=== PATIENT | female | born 1990 | race American Indian/Alaskan Native ===

== ENCOUNTER 2018-06-19 23:02 | Emergency (ER) | payer SELFPAY ==
[2018-06-20 00:48] VITALS: BP 133/98
[2018-06-20] MEDS ORDERED: NACL 0.9% 1000 ML 1,000 ML IV ONE (00:50)
[2018-06-20 01:24] LABS: Basophils # (Auto) 0.1 K/mm3 (0.0-0.1); Basophils % (Auto) 0.9 % (0.0-1.8); Eosinophils # (Auto) 0.1 K/mm3 (0.0-0.4); Eosinophils % (Auto) 1.5 % (0.0-4.3); Hematocrit 38.1 % (30.3-42.9); Hemoglobin 12.8 gm/dl (10.1-14.3); Lymphocytes # (Auto) 1.8 K/mm3 (1.2-5.4); Lymphocytes % (Auto) 23.9 % (13.4-35.0); Mean Corpuscular HGB Conc 34 % (30-34); Mean Corpuscular Hemoglobin 33 pg (28-32); Mean Corpuscular Volume 98 fl (79-97); Monocytes # (Auto) 0.5 K/mm3 (0.0-0.8); Monocytes % (Auto) 6.2 % (0.0-7.3); Platelet Count 275 K/mm3 (140-440); Red Blood Count 3.89 M/mm3 (3.65-5.03)
[2018-06-20 01:41] LABS: Alanine Aminotransferase 11 units/L (7-56); Albumin 4.8 g/dL (3.9-5); BUN/Creatinine Ratio 14; Blood Urea Nitrogen 7 mg/dL (7-17); Calcium 9.7 mg/dL (8.4-10.2); Hemolysis Index 19; Lipase 51 units/L (13-60)
== END 2018-06-20 02:40 | disposition left against medical advice (07) ==
LOC: ED 23:02
DX: R11.0 Nausea (principal); R10.9 Unspecified abdominal pain; Z53.21 Procedure and treatment not carried out due to patient leaving prior to being seen by health care provider
CPT/HCPCS: 36415; 80053; 83690; 84703; 85025

== ENCOUNTER 2020-10-14 13:25 | Emergency (ER) | payer SELFPAY ==
--- NOTE | 2020-10-14 13:57 | Event Note ---
ED Screening Note ED Screening Note: took at home test was positive 3 weeks ago went to [place] due to back pain states she was having intercourse last night and began having vaginal spotting began having lower abd cramping LNMP: 08/16/2020 has not seen [facility] no fever no diarrhea no vomiting no dysuria PMHx none allergy: iodine /P:1/A:1 This initial assessment/diagnostic orders/clinical plan/treatment(s) is/are subject to change based on patients health status, clinical progression and re- assessment by fellow clinical providers in the ED. Further treatment and workup at subsequent clinical providers discretion. Patient/guardian urged not to elope from the ED as their condition may be serious if not clinically assessed and managed. Initial orders include: labs, US, UA
[2020-10-14 14:56] LABS: Hematocrit 37.6 % (30.3-42.9); Hemoglobin 12.9 gm/dl (10.1-14.3); Mean Corpuscular HGB Conc 34 % (30-34); Mean Corpuscular Volume 99 fl (79-97); Platelet Count 333 K/mm3 (140-440); Red Blood Count 3.81 M/mm3 (3.65-5.03); Red Cell Distribution Width 12.9 % (13.2-15.2)
[2020-10-14 15:14] LABS: Blood Urea Nitrogen 4 mg/dL (7-17); Calcium 9.9 mg/dL (8.4-10.2); Hemolysis Index 4
[2020-10-14 15:16] LABS: BUN/Creatinine Ratio 10
--- NOTE | 2020-10-14 15:23 | Ultrasound Report ---
ULTRASOUND OBSTETRIC REASON FOR EXAM: , cramping, spotting TECHNIQUE: Transabdominal and transvaginal ultrasound was performed to evaluate a first trimester pre gnancy. COMPARISON: None available. FINDINGS: FINDINGS: The pole, yolk sac, and gestational sac are normal in appearance. [place]-rump length: 0.65 cm. This corresponds with a gestational age of 5 weeks 3 days. heart rate: No FHT detected. Perigestational hemorrhage: No evidence of perigestational hemorrhage on the provided images. MATERNAL FINDINGS: The uterus measures 8.3 x 5.0 x 6.8 cm. No focal myometrial mass. The right ovary measures 3.3 x 2 x 2 cm and demonstrates a normal sonographic appearance. The left ovary measures 2.7 x 0.7 x 2 cm and demonstrates a normal sonographic appearance. Cul-de-sac: No free fluid IMPRESSION: Intrauterine of uncertain viability. [place]-rump length corresponds to a gestational age of 5 weeks 3 days, though no heart tones are detected at this time. In a hemodynamically stable pa tient, recommend follow-up with pelvic ultrasound in 7-10 days. Signer Name: Michael Pereyra MD Signed: 10/14/2020 3:18 PM Workstation Name: [id number]
--- NOTE | 2020-10-14 15:23 | Ultrasound Report ---
ULTRASOUND OBSTETRIC REASON FOR EXAM: , cramping, spotting TECHNIQUE: Transabdominal and transvaginal ultrasound was performed to evaluate a first trimester pre gnancy. COMPARISON: None available. FINDINGS: FINDINGS: The pole, yolk sac, and gestational sac are normal in appearance. [place]-rump length: 0.65 cm. This corresponds with a gestational age of 5 weeks 3 days. heart rate: No FHT detected. Perigestational hemorrhage: No evidence of perigestational hemorrhage on the provided images. MATERNAL FINDINGS: The uterus measures 8.3 x 5.0 x 6.8 cm. No focal myometrial mass. The right ovary measures 3.3 x 2 x 2 cm and demonstrates a normal sonographic appearance. The left ovary measures 2.7 x 0.7 x 2 cm and demonstrates a normal sonographic appearance. Cul-de-sac: No free fluid IMPRESSION: Intrauterine of uncertain viability. [place]-rump length corresponds to a gestational age of 5 weeks 3 days, though no heart tones are detected at this time. In a hemodynamically stable pa tient, recommend follow-up with pelvic ultrasound in 7-10 days. Signer Name: Michael Pereyra MD Signed: 10/14/2020 3:18 PM Workstation Name: [id number]
[2020-10-14 15:43] VITALS: BP 122/76
--- NOTE | 2020-10-14 15:45 | Emergency Department Report ---
ED HPI - General Chief complaint: Vaginal Bleeding Stated complaint: ABDOMINAL PAIN Time Seen by Provider: 10/14/20 13:55 Source: patient Mode of arrival: Ambulatory Limitations: No Limitations - History of Present Illness Initial comments: This is a 30-year-old female nontoxic, well nourished in appearance, no acute signs of distress presents to the ED with c/o of vaginal bleeding and pelvic pain x 1 day. Patient stated yesterday she noticed some spotting. Patient denies any abdominal pain. Patient denies any vaginal discharge or foul odor. Patient denies any nausea, vomiting, chest pain, shortness of breathe, fever, chills, headache, stiff neck, numbness, tingling. Patient denies any urinary symptoms. Patient denies any allergies or PMH. MD Complaint: vaginal bleeding, other (Pelvic pain) -: This morning Location: pelvis Radiation: none Severity: mild Severity scale (0 -10): 3 Quality: cramping, aching Consistency: intermittent Improves with: none Worsens with: none Associated symptoms: vaginal bleeding. denies: nausea/vomiting, vaginal discharge, abdominal pain, dysuria, headache, vision changes, malaise, dysparuenia, rash, seizure, shortness of breath, syncope, weakness Vaginal bleeding: light :: Yes - Related Data Home Medications Medication Instructions Recorded Confirmed Last Taken Bentyl 10 mg PO QID 06/20/18 06/20/18 Unknown Simethicone 80 mg PO Q6H 06/20/18 06/20/18 Unknown Allergies Allergy/AdvReac Type Severity Reaction Status Date / Time iodine Allergy Hives Verified 06/20/18 00:48 ED Review of Systems ROS: Stated complaint: ABDOMINAL PAIN Other details as noted in HPI Comment: All other systems reviewed and negative Constitutional: denies: chills, fever Eyes: denies: eye pain, eye discharge, vision change ENT: denies: ear pain, throat pain Respiratory: denies: cough, shortness of breath, wheezing Cardiovascular: denies: chest pain, palpitations Endocrine: no symptoms reported Gastrointestinal: denies: abdominal pain, nausea, diarrhea Genitourinary: abnormal menses. denies: urgency, dysuria, discharge Musculoskeletal: denies: back pain, joint swelling, arthralgia Skin: denies: rash, lesions Neurological: denies: headache, weakness, paresthesias Psychiatric: denies: anxiety, depression Hematological/Lymphatic: denies: easy bleeding, easy bruising ED Past Medical Hx - Past Medical History Previous Medical History?: No - Surgical History Past Surgical History?: Yes Additional Surgical History: , Hernia repair - Social History Smoking Status: Never Smoker Substance Use Type: None - Medications Home Medications: Home Medications Medication Instructions Recorded Confirmed Last Taken Type Bentyl 10 mg PO QID 06/20/18 06/20/18 Unknown History Simethicone 80 mg PO Q6H 06/20/18 06/20/18 Unknown History ED Physical Exam - General Limitations: No Limitations General appearance: alert, in no apparent distress - Head Head exam: Present: atraumatic, normocephalic - Eye Eye exam: Present: normal appearance - Neck Neck exam: Present: normal inspection, full ROM. Absent: tenderness, meningismus, lymphadenopathy - Respiratory Respiratory exam: Absent: respiratory distress - Cardiovascular Cardiovascular Exam: Present: regular rate - GI/Abdominal GI/Abdominal exam: Present: soft, normal bowel sounds. Absent: distended, tenderness, guarding, rebound, rigid, diminished bowel sounds - Extremities Exam Extremities exam: Present: full ROM - Back Exam Back exam: Present: normal inspection, full ROM. Absent: tenderness, CVA tenderness (R), CVA tenderness (L), muscle spasm, paraspinal tenderness, vertebral tenderness, rash noted - Neurological Exam Neurological exam: Present: alert, oriented X3, normal gait - Psychiatric Psychiatric exam: Present: normal affect, normal mood - Skin Skin exam: Present: warm, dry, intact, normal color. Absent: rash ED Course Vital Signs 10/14/20 13:30 Temperature 98.2 F Pulse Rate 85 Respiratory 16 Rate Blood Pressure 122/76 O2 Sat by Pulse 100 Oximetry Vital Signs 10/14/20 13:30 Temperature 98.2 F Pulse Rate 85 Respiratory 16 Rate Blood Pressure 122/76 O2 Sat by Pulse 100 Oximetry - Reevaluation(s) Reevaluation #1: 10/14/20 15:44 Patient is speaking in full sentences with no signs of distress noted. ED Medical Decision Making - Lab Data Result diagrams: 10/14/20 14:40 10/14/20 14:40 Lab Results 10/14/20 10/14/20 10/14/20 Range/Units 14:40 14:40 14:40 WBC 9.6 (4.5-11.0) K/mm3 RBC 3.81 (3.65-5.03) M/mm3 Hgb 12.9 (10.1-14.3) gm/dl Hct 37.6 (30.3-42.9) % MCV 99 H (79-97) fl MCH 34 H (28-32) pg MCHC 34 (30-34) % RDW 12.9 L (13.2-15.2) % Plt Count 333 (140-440) K/mm3 Sodium 138 (137-145) mmol/L Potassium 4.1 (3.6-5.0) mmol/L Chloride 102.8 (98-107) mmol/L Carbon Dioxide 23 (22-30) mmol/L Anion Gap 16 mmol/L BUN 4 L (7-17) mg/dL Creatinine 0.4 L (0.6-1.2) mg/dL Estimated GFR > 60 ml/min BUN/Creatinine Ratio 10 % Glucose 86 (65-100) mg/dL Calcium 9.9 (8.4-10.2) mg/dL HCG, Quant 34608 H (0-4) mIU/mL Urine Color (Yellow) Urine Turbidity (Clear) Urine pH (5.0-7.0) Ur Specific [place] (1.003-1.030) Urine Protein (Negative) mg/dL Urine Glucose (UA) (Negative) mg/dL Urine Ketones (Negative) mg/dL Urine Blood (Negative) Urine Nitrite (Negative) Urine Bilirubin (Negative) Urine Urobilinogen (<2.0) mg/dL Ur Leukocyte Esterase (Negative) Urine WBC (Auto) (0.0-6.0) /HPF Urine RBC (Auto) (0.0-6.0) /HPF U Epithel Cells (Auto) (0-13.0) /HPF Urine Mucus /HPF Blood Type 10/14/20 10/14/20 Range/Units 14:40 15:17 WBC (4.5-11.0) K/mm3 RBC (3.65-5.03) M/mm3 Hgb (10.1-14.3) gm/dl Hct (30.3-42.9) % MCV (79-97) fl MCH (28-32) pg MCHC (30-34) % RDW (13.2-15.2) % Plt Count (140-440) K/mm3 Sodium (137-145) mmol/L Potassium (3.6-5.0) mmol/L Chloride (98-107) mmol/L Carbon Dioxide (22-30) mmol/L Anion Gap mmol/L BUN (7-17) mg/dL Creatinine (0.6-1.2) mg/dL Estimated GFR ml/min BUN/Creatinine Ratio % Glucose (65-100) mg/dL Calcium (8.4-10.2) mg/dL HCG, Quant (0-4) mIU/mL Urine Color Yellow (Yellow) Urine Turbidity Clear (Clear) Urine pH 6.0 (5.0-7.0) Ur Specific [place] 1.014 (1.003-1.030) Urine Protein <15 mg/dl (Negative) mg/dL Urine Glucose (UA) Neg (Negative) mg/dL Urine Ketones 20 (Negative) mg/dL Urine Blood Neg (Negative) Urine Nitrite Neg (Negative) Urine Bilirubin Neg (Negative) Urine Urobilinogen < 2.0 (<2.0) mg/dL Ur Leukocyte Esterase Neg (Negative) Urine WBC (Auto) 1.0 (0.0-6.0) /HPF Urine RBC (Auto) < 1.0 (0.0-6.0) /HPF U Epithel Cells (Auto) 1.0 (0-13.0) /HPF Urine Mucus Few /HPF Blood Type O POSITIVE - Radiology Data Referring Physician: JUAN HERNANDEZ Patient Name: KEENAN FAJARDO Date of : 1990 Sex: Female Report Date: 2020-10-14 Report Status: Finalized [facility] [address] [place] [address] Ultrasound Report Signed Patient: KEENAN FAJARDO MR#: [id number] : 1990 Acct:[id number] Age/Sex: 30 / F ADM Date: 10/14/20 Loc: ED Attending Dr: Ordering Physician: ZOYA CHRISTENSEN Date of Service: 10/14/20 Procedure(s): US OB <= 14 weeks fetus Accession Number(s): [id number] cc: ZOYA CHRISTENSEN ULTRASOUND OBSTETRIC REASON FOR EXAM: , cramping, spotting TECHNIQUE: Transabdominal and transvaginal ultrasound was performed to evaluate a first trimester . COMPARISON: None available. FINDINGS: FINDINGS: The pole, yolk sac, and gestational sac are normal in appearance. [place]-rump length: 0.65 cm. This corresponds with a gestational age of 5 weeks 3 days. heart rate: No FHT detected. Perigestational hemorrhage: No evidence of perigestational hemorrhage on the provided images. MATERNAL FINDINGS: The uterus measures 8.3 x 5.0 x 6.8 cm. No focal myometrial mass. The right ovary measures 3.3 x 2 x 2 cm and demonstrates a normal sonographic appearance. The left ovary measures 2.7 x 0.7 x 2 cm and demonstrates a normal sonographic appearance. Cul-de-sac: No free fluid IMPRESSION: Intrauterine of uncertain viability. [place]-rump length corresponds to a gestational age of 5 weeks 3 days, though no heart tones are detected at this time. In a hemodynamically stable patient, recommend follow-up with pelvic ultrasound in 7-10 days. Signer Name: Isela Pereyra MD Signed: 10/14/2020 3:18 PM Workstation Name: [id number] Transcribed By: JS Dictated By: ISELA LOZADA MD Electronically Authenticated By: ISELA LOZADA MD Signed Date/Time: 10/14/201517 DD/ 1513 TD/TT: Referring Physician: JUAN HERNANDEZ Patient Name: KEENAN FAJARDO Date of : 1990 Sex: Female Report Date: 2020-10-14 Report Status: Finalized [facility] [address] [place] [address] Ultrasound Report Signed Patient: KEENAN FAJARDO MR#: [id number] : 1990 Acct:[id number] Age/Sex: 30 / F ADM Date: 10/14/20 Loc: ED Attending Dr: Ordering Physician: ZOYA CHRISTENSEN Date of Service: 10/14/20 Procedure(s): US OB transvaginal Accession Number(s): [id number] cc: ZOYA CHRISTENSEN ULTRASOUND OBSTETRIC REASON FOR EXAM: , cramping, spotting TECHNIQUE: Transabdominal and transvaginal ultrasound was performed to evaluate a first trimester . COMPARISON: None available. FINDINGS: FINDINGS: The pole, yolk sac, and gestational sac are normal in appearance. [place]-rump length: 0.65 cm. This corresponds with a gestational age of 5 weeks 3 days. heart rate: No FHT detected. Perigestational hemorrhage: No evidence of perigestational hemorrhage on the provided images. MATERNAL FINDINGS: The uterus measures 8.3 x 5.0 x 6.8 cm. No focal myometrial mass. The right ovary measures 3.3 x 2 x 2 cm and demonstrates a normal sonographic appearance. The left ovary measures 2.7 x 0.7 x 2 cm and demonstrates a normal sonographic appearance. Cul-de-sac: No free fluid IMPRESSION: Intrauterine of uncertain viability. [place]-rump length corresponds to a gestational age of 5 weeks 3 days, though no heart tones are detected at this time. In a hemodynamically stable patient, recommend follow-up with pelvic ultrasound in 7-10 days. Signer Name: Isela Pereyra MD Signed: 10/14/2020 3:18 PM Workstation Name: [id number] Transcribed By: MARK Dictated By: ISELA LOZADA MD Electronically Authenticated By: ISLEA LOZADA MD Signed Date/Time: 10/14/201517 DD/ 12 TD/TT: - Medical Decision Making This is a 30-year-old female presents with threatened miscarriage. Patient is stable and was examined by me. Normal abdominal exam. US OB obtained and dictated by the radiologist. Ua obtained. Quantative serum test obtained. Patient notified of the US report with no questions noted by the patient. Patient was instructed f/u with [facility] in [facility]-5 days. RH factor positive. Labs within normal limits. Patient was given strict precautions and education on ectopic . At time of discharge, the patient does not seem toxic or ill in appearance. No acute signs of distress noted. Patient agrees to discharge treatment plan of care. No further questions noted by the patient. Critical care attestation.: If time is entered above; I have spent that time in minutes in the direct care of this critically ill patient, excluding procedure time. ED Disposition Clinical Impression: Threatened miscarriage Disposition: DC-01 TO HOME OR SELFCARE Is pt being admited?: No Does the pt Need Aspirin: No Condition: Stable Instructions: Threatened Miscarriage Additional Instructions: Follow-up with a OBGYN doctor in 3-5 days or if symptoms worsen and continue return to emergency room as soon as possible. Referrals: [facility] [Referring] - 3-5 Days [facility] [Provider Group] - 3-5 Days [facility] [Provider Group] - 3-5 Days Forms: Work/School Release Form(ED)
[2020-10-14 16:00] LABS: Bilirubin,Urine NEG (Negative); Blood,Urine NEG (Negative); Color,Urine Yellow (Yellow); Mucus,Urine FEW /HPF; Protein,Urine <15 mg/dL mg/dL (Negative); RBC,Urine < 1.0 /HPF (0.0-6.0); Urobilinogen,Urine < 2.0 mg/dL (<2.0)
[2020-10-14 16:29] LABS: Band Neutrophils # (Manual) 0.1 K/mm3; Total Cells Counted 100
[2020-10-14 16:30] LABS: Burr Cells Rare; Ovalocytes Rare; Platelet Estimate Consistent w Auto
== END 2020-10-14 16:39 | disposition home or self-care (01) ==
LOC: ED 13:25
DX: O20.0 Threatened abortion (principal); Z79.899 Other long term (current) drug therapy; Z91.041 Radiographic dye allergy status; Z98.890 Other specified postprocedural states; Z3A.01 Less than 8 weeks gestation of pregnancy
CPT/HCPCS: 36415; 76801; 76817; 80048; 81001; 84702; 85007; 85025; 86900; 86901